=== PATIENT | female | born 1975 | race Caucasian/White ===

== ENCOUNTER 2024-08-19 16:38 | Emergency (ER) | payer OTHER ==
--- OUTSIDE RECORDS SUMMARY | 2024-08-19 16:41 | XMS REPORT | Continuity of Care Document ---
Author Name Unknown Address [address] [place] [address] [address] [place] [address] [facility] Address [address] [place] [address] 1 [address] [place] [address] Care Team Providers Care Test Clerk Name Role Phone Unavailable Unavailable Unavailable Social History Smoking Status Start Date Stop Date Source Current Every Day Smoker [facility] Medications Ordered Medication Name Filled Medication Name Start Date Stop Date Current Medication? Ordering Clinician Indication Dosage Frequency Signature (SIG) Comments Components Source citalopram 20 mg tablet TAKE ONE (1) TABLET(S) BY MOUTH DAILY. citalopram 20 mg tablet TAKE ONE (1) TABLET(S) BY MOUTH DAILY. No citalopram 20 mg tablet TAKE ONE (1) TABLET(S) BY MOUTH DAILY. [facility] melatonin melatonin No melatonin [facility] olanzapine 20 mg tablet TAKE ONE (1) TABLET(S) BY MOUTH IN THE EVENING. olanzapine 20 mg tablet TAKE ONE (1) TABLET(S) BY MOUTH IN THE EVENING. No olanzapine 20 mg tablet TAKE ONE (1) TABLET(S) BY MOUTH IN THE EVENING. [facility] Vital Signs Vital Name Observation Time Observation Value Comments S ource BP Diastolic 2024-04-10 00:00:00 62 mm[Hg] [facility] BMI (Body Mass Index) 2024-04-10 00:00:00 28.7 kg/m2 [facility] Height 2024-04-10 00:00:00 62 [in_i] [facility] BP Systolic 2024-04-10 00:00:00 94 mm[Hg] [facility] Body Weight 2024-04-10 00:00:00 156.8 [lb_av] [facility] Procedures Procedure Date / Time Performed Performing Clinicia n Source MAMMO, screening, digital, bilateral 2024-04-10 00:00:00 [facility] Encounters Start Date/Time End Date/Time Encounter Type Admission Type Attending [facility] Care Department Encounter ID Source 2024-07-19 16:32:10 2024-07-19 16:32:10 Outpatient SFA SFA [id number] Izaiah Ceron 2024-05-25 14:19:02 2024-05-25 14:19:02 Outpatient SFA SFA [id number] Izaiah Ceron 2024-04-10 00:00:00 2024-04-10 00:00:00 DAPHNIE Freeman: [address], [address], [place] [address] , Ph. Formerly [facility] - GC_GCBZW_La yudelka Duncan* [id number] [facility] 2024-01-18 13:54:49 2024-01-18 13:54:49 Outpatient SFA SFA [id number] Izaiah Ceron 2023-11-24 10:19:48 2023-11-24 10:19:48 Outpatient SFA SFA [id number] Izaiah Ceron 2023-11-18 09:56:00 2023-11-18 09:56:00 Outpatient SFA SFA [id number] Izaiah Ceron 2023-06-08 09:32:13 2023-06-08 09:32:13 Outpatient SFA SFA [id number] Izaiah Ceron 2023-04-08 09:11:53 2023-04-08 09:11:53 Outpatient SFA SFA [id number] Izaiah Ceron 2022-01-14 14:35:22 2022-01-14 14:35:22 Outpatient SFA SFA [id number] Izaiah Ceron Results Test Description Test Time Test Comments Results Result Co mments Source LIPID [id number] 03:54:41* Test Item Value Reference Range Interpretation Comme nts CHOLESTEROL (test code = 2210) 215 MG/DL <200 H TRIGLYCERIDES (test code = 2232) 137 MG/DL <150 HDL CHOLESTEROL (test code = 2220) 52 MG/DL >39 CALC LDL CHOL (test code = 2237) 137 MG/DL <100 H NOTE: CALCULATED LDL IS BASED ON BRONSON-PEOPLES METHOD WHICHINCLUDES ADJUSTABLE TRIGLYCERIDE:VLDL CHOLESTEROL RATIO.THIS FACTOR VARIES BY MEASURED TRIGLYCERIDE AND NON-HDLCHOLESTEROL CONCENTRATIONS WITH INCREASED CALCULATED LDL SEENIN HIGHER TRIGLYCERIDE OR LOWER NON-HDL SPECIMENS. FOR MOREINFORMATION, SEE CLIENT ANNOUNCEMENT AT [email or web address] ([email or web address] /CalcLDL-C RISK RATIO LDL/HDL (test code = 2238) 2.63 RATIO <3.22 HEMOGLOBIN [id number] 03:44:33* Test Item Value Reference Range Interpretation Comme nts HEMOGLOBIN A1c (test code = 13493) 5.4 % 4.2-5.6 CBC W/AUTO DIFF WITH [id number] 02:19:19* Test Item Value Reference Range Interpretation Comme nts WBC (test code = 1001) 7.9 K/UL 3.5-11.0 RBC (test code = 1002) 4.40 M/UL 3.80-5.40 HEMOGLOBIN (test code = 1003) 13.9 G/DL 11.5-15.5 HEMATOCRIT (test code = 1004) 42.2 % 34.0-45.0 MCV (test code = 1005) 95.9 fL 80.0-99.0 MCH (test code = 1006) 31.6 PG 25.0-33.0 MCHC (test code = 1007) 32.9 G/DL 31.0-36.0 RDW (test code = 1038) 12.3 % 11.5-15.0 NEUTROPHILS (test code = 1008) 57.4 % LYMPHOCYTES (test code = 1010) 33.8 % MONOCYTES (test code = 1011) 8.1 % EOSINOPHILS (test code = 1012) 0.0 % BASOPHILS (test code = 1013) 0.4 % IMMATURE GRANULOCYTES (test code = 1036) 0.3 % NUCLEATED RBCS (test code = 1065) 0.0 /100 WBC'S See_Comment [Automated message] The system which generated this result transmitted reference range: 0.0. The reference range was not used to interpret this result as normal/abnormal. PLATELET COUNT (test code = 1015) 317 K/UL 130-400 ABSOLUTE NEUTROPHILS (test code = 1066) 4.55 K/UL 1.50-7.50 ABSOLUTE LYMPHOCYTES (test code = 1067) 2.68 K/UL 1.00-4.00 ABSOLUTE MONOCYTES (test code = 1068) 0.64 K/UL 0.20-1.00 ABSOLUTE EOSINOPHILS (test code = 1040) 0.00 K/UL 0.00-0.50 ABSOLUTE BASOPHILS (test code = 1069) 0.03 K/UL 0.00-0.20 ABS IMMATURE GRANULOCYTES (test code = 1020) 0.02 K/UL 0.00-0.10 ABS NUCLEATED RBCS (test code = 34839) 0.00 K/UL 0.00-0.11 UNLESS OTHER RUSSELL INDICATED, ALL TESTING PERFORMED AT [facility] [address] [place] [id number] TUFTER HAND: LYNN SILVERMAN M.D. CLIA NUMBER [id number] [facility]. [id number]
--- NOTE | 2024-08-19 17:21 | EDPHYS ---
Physician Documentation [facility] Name: Deann Doherty Age: 49 yrs Sex: Female : 1975 Arrival Date: 08/19/2024 Time: 16:38 Bed IW5 Private MD: ED Physician Gopi Anthony HPI: 08/19 17:22 This 49 yrs old Female presents to ER via Ambulatory with complaints of Ear Pain. sb4 17:22 The patient presents with pain, that is acute. The complaints affect the left ear. sb4 Onset: The symptoms/episode began/occurred 3 day(s) ago. Modifying factors: The symptoms are alleviated by nothing, the symptoms are aggravated by loud noise, pulling on ears, touching. Associated signs and symptoms: The patient has no apparent associated signs or symptoms. The patient has not experienced similar symptoms in the past. The patient has not recently seen a physician. 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 - Infectious Disease History:: Denies. - Social history:: Smoking status: Patient reports the use of cigarette tobacco products, smokes one pack cigarettes per day. ROS: 17:24 Constitutional: Negative for fever, chills, and weight loss, sb4 17:24 ENT: Positive for ear pain, 17:24 All other systems are negative, Exam: 17:24 Constitutional: This is a well developed, well nourished patient who is awake, alert, sb4 and in no acute distress. Head/Face: Normocephalic, atraumatic. Eyes: Extra-ocular motions intact. Periorbital areas with no swelling, redness, or edema. Respiratory: No increased work of breathing, no retractions or nasal flaring. Skin: Warm, dry with normal turgor. Normal color with no rashes, no lesions, and no evidence of cellulitis. 17:24 ENT: Ear canal(s): erythema, that is moderate, of the left canal, swelling, that is minimal, of the left canal, TM's: erythema, that is moderate, on the left, Examination of the other ear shows no obvious abnormality, Vital Signs: 17:16 BP 107 / 75; Pulse 68; Resp 18; Temp 98.2; Pulse Ox 97% ; Weight 68.95 kg; Height 5 ft. me1 2 in. ; Pain 8/10; 17:16 Body Mass Index 27.80 (68.95 kg, 157.48 cm) me1 17:16 Pain Scale: Adult me1 MDM: 17:05 Medical Screening Exam initiated sb4 17:24 Differential diagnosis: otitis media, otitis externa, ruptured TM, foreign body, acute sb4 otalgia, cerumen impaction. Data reviewed: vital signs, nurses notes, and as a result, I will discharge patient. Counseling: I had a detailed discussion with the patient and/or guardian regarding the historical points, exam findings, and any diagnostic results supporting the discharge/admit diagnosis, the need for outpatient follow up, for definitive care, to return to the emergency department if symptoms worsen or persist or if there are any questions or concerns that arise at home. Administered Medications: No medications were administered Disposition Summary: 08/19/24 17:20 Discharge Ordered Notes: Location: Home sb4 Problem: new sb4 Symptoms: are unchanged sb4 Condition: Stable sb4 Diagnosis - Otitis media, unspecified, left ear sb4 Followup: sb4 - With: Private Physician - When: 1 week - Reason: Recheck today's complaints, Re-evaluation by your physician Discharge Instructions: - Discharge Summary Sheet sb4 - Otitis Media, Adult sb4 Forms: - Antibiotic Education sb4 - Patient Portal Instructions sb4 - Leadership Thank You Letter sb4 Prescriptions: - Amoxicillin 875 mg Oral Tablet - take 1 tablet ORAL route every 12 hours for 10 days; 20 tablet; Refills: 0, sb4 Product Selection Permitted Addendum: 08/21/2024 19:19 Co-signature as Attending Physician, Gopi Anthony MD I agree with the assessment and c muñoz plan of care. Signatures: Gopi Anthony MD MD cha Brown, Sophia, PADiya PADiya sb4 Mahsa Hodges, RN RN me1
--- NOTE | 2024-08-19 17:21 | ER ---
Nurse's Notes [facility] Name: Deann Doherty Age: 49 yrs Sex: Female : 1975 Arrival Date: 08/19/2024 Time: 16:38 Bed IW5 Private MD: Diagnosis: Otitis media, unspecified, left ear Presentation: 08/19 17:16 Chief complaint: Patient states: left ear pain "8/10", "sharp and throbbing" x 3 days. me1 Unable to wear left hearing aide due to pain when it is in. Coronavirus screen: Vaccine status: Patient reports receiving the 2nd dose of the covid vaccine. Ebola Screen: No symptoms or risks identified at this time. Initial Sepsis Screen: Does the patient meet any 2 criteria? No. Patient's initial sepsis screen is negative. Does the patient have a suspected source of infection? No. Patient's initial sepsis screen is negative. Risk Assessment: Do you want to hurt yourself or someone else? Patient reports no desire to harm self or others. Onset of symptoms was August 16, 2024. 17:16 Method Of Arrival: Ambulatory [facility] 17:16 Acuity: CANDI 4 sc1 Triage Assessment: 17:18 General: Appears uncomfortable, well groomed, well developed, well nourished, Behavior me1 is calm, cooperative, appropriate for age. Pain: Complains of pain in left ear Pain does not radiate. Pain currently is 8 out of 10 on a pain scale. Quality of pain is described as sharp, throbbing, Pain began 2-3 days ago. Is continuous. EENT: Reports pain in left ear. Neuro: Level of Consciousness is awake, alert, obeys commands, Oriented to person, place, time, situation, Appropriate for age. Cardiovascular: Patient's skin is warm and dry. Respiratory: Airway is patent Respiratory effort is even, unlabored, Respiratory pattern is regular, symmetrical. GI: No signs and/or symptoms were reported involving the gastrointestinal system. : No signs and/or symptoms were reported regarding the genitourinary system. Derm: Skin is intact, is healthy with good turgor, Skin is pink, warm \\T\\ dry. Musculoskeletal: No signs and/or symptoms reported regarding the musculoskeletal system. 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 - Infectious Disease History:: Denies. - Social history:: Smoking status: Patient reports the use of cigarette tobacco products, smokes one pack cigarettes per day. Screenin:21 [facility] ED Fall Risk Assessment (Adult) History of falling in the last 3 months, me1 including since admission No falls in past 3 months (0 pts) Confusion or Disorientation No (0 pts) Intoxicated or Sedated No (0 pts) Impaired Gait No (0 pts) Mobility Assist Device Used No (0 pt) Altered Elimination No (0 pt) Score/Fall Risk Level 0 - 2 = Low Risk Maintained a safe environment, Provided non-skid footwear, Hourly rounding (assess needs \\T\\ fall precautionary measures) done. Abuse screen: Denies threats or abuse. Nutritional screening: No deficits noted. Tuberculosis screening: No symptoms or risk factors identified. Assessment: 17:21 General: See triage assessment. me1 Vital Signs: 17:16 BP 107 / 75; Pulse 68; Resp 18; Temp 98.2; Pulse Ox 97% ; Weight 68.95 kg; Height 5 ft. me1 2 in. ; Pain 8/10; 17:16 Body Mass Index 27.80 (68.95 kg, 157.48 cm) me1 17:16 Pain Scale: Adult sc1 ED Course: 16:40 Patient arrived in ED. im 17:00 Leila Lombardo PA-C is PHCP. sb4 17:00 Gopi Anthony MD is Attending Physician. sb4 17:18 Triage completed. me1 17:18 Arm band placed on Patient placed in waiting room. me1 17:21 Patient has correct armband on for positive identification. Bed in low position. Call me1 light in reach. Side rails up X2. Provided Education on: POC. Verbalized understanding.. 17:21 No provider procedures requiring assistance completed. Patient did not have IV access me1 during this emergency room visit. Administered Medications: No medications were administered Medication: 17:21 VIS not applicable for this client. me1 Outcome: 17:20 Discharge ordered by . sb4 17:23 Discharged to home ambulatory, me1 17:23 Condition: stable 17:23 Discharge instructions given to patient, Instructed on discharge instructions, follow up and referral plans. medication usage, Demonstrated understanding of instructions, follow-up care, medications, Prescriptions given X 1, 17:23 Patient left the ED. me1 Signatures: Leila Lombardo PA-C PA-C sb4 Thea Nicole Michelle, RN RN me1
[2024-08-19 17:34] VITALS: BP 107/75; TEMP 98.2; O2SAT 97
== END 2024-08-19 17:23 | disposition home or self-care (01) ==
LOC: ER 16:38
DX: H66.92 Otitis media, unspecified, left ear (principal); F17.210 Nicotine dependence, cigarettes, uncomplicated
CPT/HCPCS: 99283

== ENCOUNTER 2025-01-12 12:23 | Inpatient (IN) | payer OTHER ==
--- OUTSIDE RECORDS SUMMARY | 2025-01-12 12:26 | XMS REPORT | Continuity of Care Document ---
Author Name Unknown Address [address] [place] [address] [address] [place] [address] Organization [facility] [place] Address [address] [place] [address] 1 [address] [place] [address] Care Team Providers Care Mobile Ui Developer Name Role Phone Unavailable Unavailable Unavailable Social [...] TAKE ONE (1) TABLET(S) BY MOUTH DAILY. [facility] melatonin melatonin No melatonin [facility] olanzapine 20 mg tablet TAKE ONE (1) TABLET(S) BY MOUTH IN THE EVENING. olanzapine 20 mg tablet TAKE ONE (1) TABLET(S) BY MOUTH IN THE EVENING. No olanzapine 20 mg tablet TAKE ONE (1) TABLET(S) BY MOUTH IN THE EVENING. [facility] Vital Signs Vital Name Observation Time Observation Value Comments S ource BP Diastolic 2024-04-10 00:00:00 62 mm[Hg] [facility] BMI (Body Mass Index) 2024-04-10 00:00:00 28.7 kg/m2 [facility] 2024-04-10 00:00:00 62 [in_i] [facility] BP Systolic 2024-04-10 00:00:00 94 mm[Hg] [facility] Body Weight 2024-04-10 00:00:00 156.8 [lb_av] [facility] Procedures Procedure Date / Time Performed Performing Clinicia n Source MAMMO, screening, digital, bilateral 2024-04-10 00:00:00 [facility] Encounters Start Date/Time End Date/Time Encounter Type Admission Type Attending [facility] Care Department Encounter ID Source 2024-09-19 12:43:46 2024-09-19 12:43:46 Outpatient SFA SFA [id number] Izaiah Ceron 2024-07-19 16:32:10 2024-07-19 16:32:10 Outpatient SFA SFA 0423 Izaiah Ceron 2024-05-25 14:19:02 2024-05-25 14:19:02 Outpatient SFA SFA [id number] Izaiah Ceron 2024-04-10 00:00:00 2024-04-10 00:00:00 DAPHNIE Freeman: [address], [place] [address], [place] [address] , Ph. Formerly [facility] - GC_GCBZW_La yudelka Duncan* [id number] [facility] 2024-01-18 13:54:49 2024-01-18 13:54:49 Outpatient SFA SFA [...] Comments Results Result Co mments Source LIPID [id number] 03:54:41* Test Item Value Reference Range Interpretation [...] SPECIMENS. FOR MOREINFORMATION, SEE CLIENT ANNOUNCEMENT AT [email or web address] /[email or web address]-C RISK RATIO LDL/HDL (test code = 2238) 2.63 RATIO <3.22 HEMOGLOBIN [id number] 03:44:33* Test Item Value Reference Range Interpretation Comme nts HEMOGLOBIN A1c (test code = 40726) 5.4 % 4.2-5.6 CBC W/AUTO DIFF WITH [id number] 02:19:19* Test Item Value Reference Range Interpretation [...] 0.00-0.10 ABS NUCLEATED RBCS (test code = 58718) 0.00 K/UL 0.00-0.11 UNLESS OTHER RUSSELL INDICATED, ALL TESTING PERFORMED AT [facility] [address] [place] [address] DIRECTOR OF FIELD SALES: LYNN SILVERMAN M.D. CLIA NUMBER [id number] [facility]. [id number]
[2025-01-12] MEDS ORDERED: NA CHLORIDE 0.9% 1,000 ML ONE ×2 (12:40→21:51)
[2025-01-12 12:50] LABS: Absolute Lymphocytes (CBC) 3.2 K/uL (0.7-4.9); Hematocrit 36.9 % (36.0-45.0); Hemoglobin 12.4 g/dL (12.0-15.0); MCH 31.1 pg (27.0-35.0); MCHC 33.7 g/dL (32.0-36.0); MCV 92.2 fL (80-100); MPV 8.3 fL (7.6-11.3); Nucleated RBC Absolute Count 0.0 (0-0); Nucleated Red Blood Cells % 0.0 % (0-0); RBC Red Blood Cell Count 4.00 M/uL (3.86-4.86); White Blood Count 11.80 thou/uL (4.3-10.9)
[2025-01-12 13:12] LABS: PT Prothrombin Time 13.9 SECONDS (10-13.0); PTT, Activated Partial Thromb 30.8 SECONDS (27.2-37.4); Protime INR 1.24
[2025-01-12 13:32] LABS: ALT/SGPT 17 U/L (13-56); AST/SGOT 20 U/L (15-37); Albumin 3.1 g/dL (3.4-5.0); Albumin/Globulin Ratio 0.7 (1.1-1.8); Alkaline Phosphatase 110 U/L (45-117); Anion Gap 8.9 mEq/L (5.0-15.0); BUN Blood Urea Nitrogen 9 mg/dL (7-18); Globulin 4.3 g/dL (2.3-3.5); Glucose Level 127 mg/dL (74-106); Potassium 3.9 mEq/L (3.5-5.1)
[2025-01-12 13:33] LABS: Bilirubin Indirect, Calculated 0.3 mg/dL (0.2-0.8)
--- NOTE | 2025-01-12 15:02 | ER ---
Nurse's Notes [facility] Name: Deann Doherty Age: 49 yrs Sex: Female : 1975 Arrival Date: 01/12/2025 Time: 12:23 Bed 3 Private MD: Diagnosis: Acute respiratory failure-SECONDARY TO METHADONE USE;Adverse effect of other narcotics Presentation: 01/12 12:23 Acuity: CANDI 1 aa5 12:23 Onset of symptoms was January 12, 2025. aa5 12:23 Initial Sepsis Screen: Does the patient meet any 2 criteria? No. Patient's initial aa5 sepsis screen is negative. Does the patient have a suspected source of infection? No. Patient's initial sepsis screen is negative. 12:23 Coronavirus screen: At this time, the client does not indicate any symptoms associated aa5 with coronavirus-19. Ebola Screen: Unable to complete the Ebola screening because:. 12:23 Method Of Arrival: Other aa5 12:23 Chief complaint: US staff reported pt became unresponsive with snoring respirations. aa5 Rapid response team reports hypoxia, pt currently on 2L NC. Pt unresponsive at this time. 12:42 Risk Assessment: Do you want to hurt yourself or someone else? Patient reports no aa5 desire to harm self or others. Triage Assessment: 13:30 General: Appears in no apparent distress. Behavior is calm, cooperative. cf3 13:30 Pain: Denies pain. EENT: No deficits noted. Neuro: Level of Consciousness is awake, cf3 alert, Oriented to person, place, time, situation, Moves all extremities. Full function Pupils are constricted, pinpoint. 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 - Infectious Disease History:: Denies. - Social history:: Smoking status: Patient reports the use of cigarette tobacco products. - Family history:: not pertinent. Screenin:08 [facility] ED Fall Risk Assessment (Adult) History of falling in the last 3 months, cf3 including since admission No falls in past 3 months (0 pts) Confusion or Disorientation No (0 pts) Intoxicated or Sedated Yes (3 pts) Impaired Gait No (0 pts) Mobility Assist Device Used No (0 pt) Altered Elimination No (0 pt) Score/Fall Risk Level 3 or more points = High Risk Oriented to surroundings, Maintained a safe environment, Educated pt \\T\\ family on fall prevention, incl call for assistance when getting out of bed, Assessed \\T\\ reinforced patient's understanding of fall precautions, Provided non-skid footwear. 15:08 Abuse screen: Denies threats or abuse. Denies injuries from another. Nutritional cf3 screening: No deficits noted. Tuberculosis screening: No symptoms or risk factors identified. Assessment: 12:27 Reassessment: Pt now awake, A \\T\\O x 4, pt states "I just took my methadone this morning" aa5 . 12:35 Reassessment: Pt's signnificant other states "she just started taking methadone aa5 yesterday, this morning was her 2nd dose" . 13:30 General: Appears in no apparent distress. Behavior is calm, cooperative. Pain: Denies cf3 pain. 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 Full function. Neuro: Pupils are pinpoint. 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 Respiratory: Respiratory effort is even, unlabored, Respiratory pattern is regular. Psych: 15:13 [place] Suicide Severity Screening: In the past month, have you wished you were cf3 or wished you could go to sleep and not wake up? Patient responds "No." "In the past month, have you actually had any thoughts of killing yourself?" Patient responds "no." "In your lifetime, have you ever done anything, started to do anything, or prepared to do anything to end your life?" Patient responds "no.". Subjective:. Objective: Patient is cooperative. Interventions: Accidental overdose on prescription medications. Safety Checks: Door is open. Visitors are present. Pt denies substance abuse. Commitment: n/a. Vital Signs: 12:23 BP 124 / 70; Pulse 95; Resp 8 S; Temp 97.5(R); Pulse Ox 98% on 2 lpm NC; aa5 12:40 BP 93 / 62; Pulse 96; Resp 16; Temp 97.8(TE); Pulse Ox 98% on NC; cf3 13:00 BP 102 / 56; Pulse 81; Resp 16; Pulse Ox 96% on 2 lpm NC; cf3 14:00 BP 92 / 57; Pulse 82; Resp 10; Pulse Ox 92% on 2 lpm NC; cf3 15:00 BP 90 / 64; Pulse 73; Resp 10; Pulse Ox 91% on 2 lpm NC; cf3 16:00 BP 99 / 74; Pulse 73; Resp 17; Pulse Ox 93% on 2 lpm NC; cf3 17:00 BP 109 / 83; Pulse 85; Resp 18; Pulse Ox 94% on 2 lpm NC; cf3 ED Course: 12:23 Arm band placed on Patient placed in an exam room, on a stretcher. aa5 12:24 Patient arrived in ED. mr 12:24 Inserted saline lock: 20 gauge in left antecubital area, using aseptic technique. Blood aa5 collected. Flushed with 10 mL NS. 12:24 No provider procedures requiring assistance completed. aa5 12:25 Inserted saline lock: 20 gauge in right hand, using aseptic technique. Flushed with 10 ar8 mL NS. 12:30 Gopi Anthony MD is Attending Physician. mabel 12:42 Triage completed. aa5 13:02 Kareem Hagan, AURA is Primary Nurse. cf3 15:01 Rola Huggins MD is Hospitalizing Provider. mabel 15:08 Patient has correct armband on for positive identification. Placed in gown. Bed in low cf3 position. Call light in reach. Side rails up X 1. Provided Education on:. Client placed on continuous cardiac and pulse oximetry monitoring. NIBP monitoring applied. telemetry monitor on. Door closed. Noise minimized. Administered Medications: 12:25 Drug: Naloxone IVP 2 mg IVP once Route: IVP; Site: right hand; ar1 15:02 Follow up: Response: No adverse reaction cf3 12:37 Drug: NS 0.9% IV 1000 ml IV at 1000 ml once; to be given as a bolus over 60 minutes cf3 Route: IV; Rate: 1000 ml; Site: left antecubital; 14:57 Follow up: IV Status: Completed infusion; IV Intake: 1000ml cf3 15:01 Follow up: Response: No adverse reaction cf3 Medication: 15:11 VIS not applicable for this client. cf3 Intake: 14:57 IV: 1000ml; Total: 1000ml. cf3 Outcome: 15:02 Decision to Hospitalize by Provider. mabel 01/13 18:23 Patient left the ED. kb4 Signatures: Gopi Anthony MD MD cha Rivera, Mary, Reg Reg mr EldridgeGaby, RN RN aa5 Mahsa Hodges RN RN me1 Ning Arzola RN RN kb4 Kareem Hagan RN RN cf3 Jewel Maddox RN RN ar8
--- NOTE | 2025-01-12 15:02 | EDPHYS ---
Physician Documentation [facility] Name: Deann Doherty Age: 49 yrs Sex: Female : 1975 Arrival Date: 01/12/2025 Time: 12:23 Bed 3 Private MD: ED Physician Gopi Anthony HPI: 01/12 13:44 This 49 yrs old Female presents to ER via Other with complaints of mabel Unresponsive. 13:44 FROM MAMMO UNRESPONSIVE , TOOK METHADONE. The patient presents with decreased mabel responsiveness. Onset: The symptoms/episode began/occurred just prior to arrival. Possible causes: drug use, METHADOINE. Associated signs and symptoms: The patient has no apparent associated signs or symptoms. Current symptoms: In the emergency department the patient's symptoms have improved, markedly. Patient's baseline: Neuro: alert and fully oriented. Severity of symptoms: At their worst the symptoms were moderate severe in the emergency department the symptoms are unchanged. The patient has not experienced similar symptoms in the past. 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 - Infectious Disease History:: Denies. - Social history:: Smoking status: Patient reports the use of cigarette tobacco products. - Family history:: not pertinent. ROS: 13:44 Constitutional: Negative for fever, chills, and weight loss, Eyes: Negative for injury, mabel pain, redness, and discharge, ENT: Negative for injury, pain, and discharge, Neck: Negative for injury, pain, and swelling, Cardiovascular: Negative for chest pain, palpitations, and edema, Respiratory: Negative for shortness of breath, cough, wheezing, and pleuritic chest pain, Abdomen/GI: Negative for abdominal pain, nausea, vomiting, diarrhea, and constipation, Back: Negative for injury and pain, : Negative for injury, bleeding, discharge, and swelling, MS/Extremity: Negative for injury and deformity, Skin: Negative for injury, rash, and discoloration, Psych: Negative for depression, anxiety, suicide ideation, homicidal ideation, and hallucinations, Allergy/Immunology: Negative for hives, rash, and allergies, Endocrine: Negative for neck swelling, polydipsia, polyuria, polyphagia, and marked weight changes, Hematologic/Lymphatic: Negative for swollen nodes, abnormal bleeding, and unusual bruising, 13:44 Neuro: Positive for UNRESPONSIVE, Exam: 13:44 Constitutional: This is a well developed, well nourished patient who is awake, alert, mabel and in no acute distress. Head/Face: Normocephalic, atraumatic. Eyes: Pupils equal round and reactive to light, extra-ocular motions intact. Lids and lashes normal. Conjunctiva and sclera are non-icteric and not injected. Cornea within normal limits. Periorbital areas with no swelling, redness, or edema. ENT: Nares patent. No nasal discharge, no septal abnormalities noted. Tympanic membranes are normal and external auditory canals are clear. Oropharynx with no redness, swelling, or masses, exudates, or evidence of obstruction, uvula midline. Mucous membranes moist. Neck: Trachea midline, no thyromegaly or masses palpated, and no cervical lymphadenopathy. Supple, full range of motion without nuchal rigidity, or vertebral point tenderness. No Meningismus. Chest/axilla: Normal chest wall appearance and motion. Nontender with no deformity. No lesions are appreciated. Cardiovascular: Regular rate and rhythm with a normal S1 and S2. No gallops, murmurs, or rubs. Normal PMI, no JVD. No pulse deficits. Respiratory: Lungs have equal breath sounds bilaterally, clear to auscultation and percussion. No rales, rhonchi or wheezes noted. No increased work of breathing, no retractions or nasal flaring. Abdomen/GI: Soft, non-tender, with normal bowel sounds. No distension or tympany. No guarding or rebound. No evidence of tenderness throughout. Back: No spinal tenderness. No costovertebral tenderness. Full range of motion. Skin: Warm, dry with normal turgor. Normal color with no rashes, no lesions, and no evidence of cellulitis. MS/ Extremity: Pulses equal, no cyanosis. Neurovascular intact. Full, normal range of motion., bilateral aka Neuro: Awake and alert, GCS 15, oriented to person, place, time, and situation. Cranial nerves II-XII grossly intact. Motor strength 5/5 in all extremities. Sensory grossly intact. Cerebellar exam normal. Normal gait. 13:44 ECG was reviewed by the Attending Physician. Vital Signs: 12:23 BP 124 / 70; Pulse 95; Resp 8 S; Temp 97.5(R); Pulse Ox 98% on 2 lpm NC; aa5 12:40 BP 93 / 62; Pulse 96; Resp 16; Temp 97.8(TE); Pulse Ox 98% on NC; cf3 13:00 BP 102 / 56; Pulse 81; Resp 16; Pulse Ox 96% on 2 lpm NC; cf3 14:00 BP 92 / 57; Pulse 82; Resp 10; Pulse Ox 92% on 2 lpm NC; cf3 15:00 BP 90 / 64; Pulse 73; Resp 10; Pulse Ox 91% on 2 lpm NC; cf3 16:00 BP 99 / 74; Pulse 73; Resp 17; Pulse Ox 93% on 2 lpm NC; cf3 17:00 BP 109 / 83; Pulse 85; Resp 18; Pulse Ox 94% on 2 lpm NC; cf3 MDM: 12:34 Medical Screening Exam initiated mabel 15:02 Differential Diagnosis altered mental status, sepsis, flu. Differential Diagnosis: CVA, mabel electrolyte abnormality, alcohol intoxication, hypoglycemia, intracranial bleed, meningitis, overdose, pneumonia, seizure, sepsis, TIA, UTI, volume depletion. Data reviewed: vital signs, nurses notes, lab test result(s), EKG. Consideration of Admission/Observation Patient was admitted/placed on observation. Escalation of care including admission/observation considered. I considered the following discharge prescriptions or medication management in the emergency department Medications were administered in the Emergency Department. See MAR. Independent interpretation of the following test(s) in the Emergency Department EKG: See my EKG interpretation above. Test considered but Not performed: CT: NO CT HEAD. Historians other than the Patient: Spouse/Significant Other: SPOUSE WELL INFORMED. Care significantly affected by the following chronic conditions: ANXIETY , DEPRESSION, SCHIZO. 01/12 12:36 Order name: Acetaminophen 01/12 12:36 Order name: Basic Metabolic Panel 01/12 12:36 Order name: CBC with Diff 01/12 12:36 Order name: ETOH Level 01/12 12:36 Order name: Hepatic Function 01/12 12:36 Order name: PT-INR [facility] 01/12 12:36 Order name: Ptt, Activated [facility] 01/12 12:36 Order name: Salicylate [facility] 01/12 12:37 Order name: Acetaminophen; Complete Time: 13:48 [facility] 01/12 12:37 Order name: Basic Metabolic Panel; Complete Time: 13:48 [facility] 01/12 12:37 Order name: CBC with Diff; Complete Time: 13:48 [facility] 01/12 12:37 Order name: ETOH Level; Complete Time: 14:59 [facility] 01/12 12:37 Order name: Hepatic Function; Complete Time: 13:48 [facility] 01/12 12:37 Order name: PT-INR; Complete Time: 13:48 [facility] 01/12 12:37 Order name: Ptt, Activated; Complete Time: 13:48 [facility] 01/12 12:37 Order name: Salicylate; Complete Time: 14:59 [facility] 01/12 12:37 Order name: Urine Drug Screen [facility] 01/12 15:46 Order name: Basic Metabolic Panel [facility] 01/12 15:46 Order name: Basic Metabolic Panel; Complete Time: 07:39 [facility] 01/12 15:46 Order name: Basic Metabolic Panel [facility] 01/12 15:46 Order name: Basic Metabolic Panel [facility] 01/12 15:46 Order name: CBC with Automated Diff [facility] 01/12 15:46 Order name: CBC with Automated Diff; Complete Time: 07:39 [facility] 01/12 15:46 Order name: CBC with Automated Diff [facility] 01/12 15:46 Order name: CBC with Automated Diff [facility] 01/12 12:36 Order name: EKG - Nurse/Tech; Complete Time: 12:36 [facility] 01/12 12:36 Order name: IV Saline Lock; Complete Time: 12:36 [facility] 01/12 12:36 Order name: Labs collected and sent; Complete Time: 12:37 [facility] 01/12 12:36 Order name: Suicide Screening (Swain); Complete Time: 17:20 [facility] 01/12 12:37 Order name: EKG - Nurse/Tech; Complete Time: 15:08 [facility] 01/12 12:37 Order name: IV Saline Lock; Complete Time: 15:08 [facility] 01/12 12:37 Order name: Labs collected and sent; Complete Time: 15:08 [facility] 01/12 12:37 Order name: Suicide Screening ([place]); Complete Time: 15:12 [facility] 01/12 12:37 Order name: Blood Glucose Level; Complete Time: 15:08 [facility] 01/12 13:53 Order name: Misc. Order: CALL POISON CONTROL FOLLOW ALL RECOMENDATIONS; Complete Time: [facility] 14:57 EC:44 Rate is 108 beats/min. Rhythm is regular. QRS [place] is Normal. SC interval is normal. mabel QRS interval is normal. QT interval is normal. No Q waves. T waves are Normal. No ST changes noted. Clinical impression: Sinus tachycardia. Interpreted by me. Reviewed by me. Administered Medications: 12:25 Drug: Naloxone IVP 2 mg IVP once Route: IVP; Site: right hand; me1 15:02 Follow up: Response: No adverse reaction cf3 12:37 Drug: NS 0.9% IV 1000 ml IV at 1000 ml once; to be given as a bolus over 60 minutes cf3 Route: IV; Rate: 1000 ml; Site: left antecubital; 14:57 Follow up: IV Status: Completed infusion; IV Intake: 1000ml cf3 15:01 Follow up: Response: No adverse reaction cf3 Disposition: 15:05 Critical Care:. mabel Disposition Summary: 01/12/25 15:02 Hospitalization Ordered Notes: Hospitalization Status: Inpatient Admission mabel Provider: Rola Huggins cha Condition: Fair mabel Problem: new mabel Symptoms: have improved mabel Bed/Room Type: Standard mabel Location: [facility] ER HOLD(01/12/25 21:37) Room Assignment: ERHOLD-(01/12/25 21:37) Diagnosis - Acute respiratory failure - SECONDARY TO METHADONE USE mabel - Adverse effect of other narcotics mabel Discharge Instructions: - Discharge Summary Sheet mabel - Substance Use Disorder mabel - Acute Respiratory Failure, Adult mabel - Substance Use Disorder and Mental Illness mabel - Supporting Someone With Substance Use Disorder mabel Forms: - Medication Reconciliation Form mabel - SBAR form mabel - Leadership Thank You Letter [facility] Critical care time excluding procedures: 15:05 Critical care time: Bedside Care: 25 minutes, Consultation: 10 minutes, Family mabel Intervention: 5 minutes. Total time: 40 minutes Signatures: Dispatcher [employer] Gopi Andrade MD MD cha Calderon, Audri, RN RN aa5 Eunice Garcia RN RN Mahsa Hodges RN RN dc1 Kareem Hagan, RN RN cf3 Corrections: (The following items were deleted from the chart) 12:37 12:37 ACETAMINOPHEN+C.LAB.BRZ ordered. EDMS EDMS 12:37 12:37 BASIC METABOLIC PANEL+C.LAB.BRZ ordered. EDMS EDMS 12:37 12:37 CBC+H.LAB.BRZ ordered. EDMS EDMS 12:37 12:37 ETHANOL+C.LAB.BRZ ordered. EDMS EDMS 12:37 12:37 HEPATIC FUNCTION+C.LAB.BRZ ordered. EDMS EDMS 12:37 12:37 PROTIME (+INR)+COAG.LAB.BRZ ordered. EDMS EDMS 12:37 12:37 PTT, ACTIVATED+COAG.LAB.BRZ ordered. EDMS EDMS 12:37 12:37 SALICYLATE+C.LAB.BRZ ordered. EDMS EDMS 21:37 15:02 Intensive Care Unit mabel cg 21:37 15:02 mabel cg
--- NOTE | 2025-01-12 17:08 | P.HP ---
Certification for Inpatient Patient admitted to: Observation With expected LOS: <2 Midnights Patient will require the following post-hospital care: None Practitioner: I am a practitioner with admitting privileges, knowledge of patient current condition, hospital course, and medical plan of care. Services: Services provided to patient in accordance with Admission requirements found in Title 42 Section 412.3 of the Code of Federal Regulations Patient History Date of Service: 01/12/25 Reason for admission: Accidental overdose History of Present Illness: 49-year-old female with history of schizophrenia, depression, anxiety, substance abuse issues presented to the hospital for an outpatient ultrasound. During the ultrasound she became unresponsive and apneic, rapid response was called and she was brought to the ER for evaluation. She was requiring BVM ventilation as she was having periods of apnea and agonal respirations and was cyanotic. While preparing for airway management she was given a dose of Narcan, shortly after she awoke. Patient reports that she was recently prescribed methadone 80 mg, she took 40 mg yesterday on 01/11 and 40 mg again today on 01/12 in the morning. She denies any use of any other substances. Given the prolonged duration of methadone patient would need to be monitored in the hospital overnight. She denies any suicidal ideation or intentional overdose. Allergies No Known Drug Allergies Allergy (Unverified 08/11/14 23:03) Unknown No Known Allergies Allergy (Uncoded 09/02/16 13:07) Unknown - Past Medical/Surgical History -: Depression/anxiety/schizophrenia - Social History Alcohol use: No CD- Drugs: No Caffeine use: Yes Place of Residence: Home Review of Systems 10-point ROS is otherwise unremarkable Respiratory: Shortness of Breath Physical Examination - Physical Exam General: Alert, In no apparent distress, Oriented x3 HEENT: Atraumatic, PERRLA Neck: Supple, 2+ carotid pulse no bruit, No LAD Respiratory: Clear to auscultation bilaterally, Normal air movement Cardiovascular: Regular rate/rhythm, Normal S1 S2 Gastrointestinal: Normal bowel sounds, No tenderness Musculoskeletal: No tenderness Integumentary: No rashes Neurological: Normal gait, Normal speech, Normal strength at 5/5 x4 extr, Normal affect - Studies Laboratory Data (last 24 hrs) 01/12/25 01/12/25 01/12/25 12:35 12:35 12:35 WBC 11.80 H Hgb 12.4 Hct 36.9 Plt Count 244 PT 13.9 H INR 1.24 APTT 30.8 Sodium 135 L Potassium 3.9 BUN 9 Creatinine 0.80 Glucose 127 H Total Bilirubin 0.5 AST 20 ALT 17 Alkaline Phosphatase 110 Assessment and Plan - Plan Assessment: Accidental opiate overdose Acute hypoxic respiratory failure/apnea Plan: Accidental opiate overdose Acute hypoxic respiratory failure/apnea Hold methadone Narcan as needed Monitor respiratory status closely given prolonged duration of action of methadone Possible discharge tomorrow if she is not having further episodes of apnea/hypoventilation DVT PPX: Lovenox Code status: Full code Discharge Plan: Home Plan to discharge in: 24 Hours - Advance Directives Does patient have a Living Will: No Does patient have a Durable POA for Healthcare: No - Code Status/Comfort Care Code Status Assessed: Yes (Full code) Critical Care: No Time Spent Managing Pts Care (In Minutes): 70
[2025-01-12] MEDS ORDERED: NALOXONE 0.4 MG/ML VIAL ONE ×2 (18:12→23:09)
[2025-01-12] MEDS: NALOXONE 0.4 MG/ML VIAL IV PRN (18:30)
[2025-01-12] MEDS ORDERED: ACETAMINOPHEN 325 MG TABLET ONE (20:40)
[2025-01-12] MEDS: ACETAMINOPHEN 325 MG TABLET PO PRN (20:42)
[2025-01-13] MEDS: NA CHLORIDE 0.9% 1,000 ML IV ONE (00:59)
[2025-01-13] MEDS ORDERED: NALOXONE 0.4 MG/ML VIAL IV PRN ×2 (01:37→02:42)
[2025-01-13] MEDS ORDERED: NALOXONE HCL 2 MG/2 ML VIAL ONE ×2 (02:30→02:43)
[2025-01-13] MEDS ORDERED: NALOXONE 0.4 MG/ML VIAL ONE (02:30)
[2025-01-13] MEDS ORDERED: NA CHLORIDE 0.9% 100 ML ONE (02:44)
[2025-01-13] MEDS: NALOXONE IV PRN (03:14)
[2025-01-13] MEDS: NA CHLORIDE 0.9% IV PRN (03:14)
[2025-01-13 05:38] VITALS: BMI 28.5
[2025-01-13] MEDS: KETOROLAC 30 MG/ML INJ IV PRN (05:44)
[2025-01-13] MEDS ORDERED: KETOROLAC 30 MG/ML INJ ONE ×2 (05:48→18:03)
[2025-01-13 07:02] LABS: Absolute Lymphocytes (CBC) 1.9 K/uL (0.7-4.9); Hematocrit 33.2 % (36.0-45.0); Hemoglobin 11.3 g/dL (12.0-15.0); MCH 31.5 pg (27.0-35.0); MCHC 34.0 g/dL (32.0-36.0); MCV 92.6 fL (80-100); MPV 8.5 fL (7.6-11.3); Nucleated RBC Absolute Count 0.0 (0-0); Nucleated Red Blood Cells % 0.0 % (0-0); RBC Red Blood Cell Count 3.59 M/uL (3.86-4.86); White Blood Count 8.40 thou/uL (4.3-10.9)
[2025-01-13 07:09] LABS: Anion Gap 10.8 mEq/L (5.0-15.0); BUN Blood Urea Nitrogen 4.0 mg/dL (7-18); Glucose Level 83.0 mg/dL (74-106); Potassium 3.8 mEq/L (3.5-5.1)
[2025-01-13 07:58] VITALS: O2SAT 97
[2025-01-13] MEDS ORDERED: ENOXAPARIN 40 MG/0.4 ML SQ ONE (08:41)
[2025-01-13] MEDS: POTASSIUM CL SA 10 MEQ TAB PO ONE (09:00)
[2025-01-13] MEDS: ENOXAPARIN 40 MG/0.4 ML SQ SCH (09:00)
[2025-01-13] MEDS ORDERED: POTASSIUM CL SA 10 MEQ TAB PO ONE (09:55)
--- NOTE | 2025-01-13 17:04 | P.DS ---
Admission Date: 01/12/25 Discharge Date: 01/13/25 Disposition: ROUTINE DISCHARGE Discharge Condition: GOOD Reason for Admission: Accidental overdose Brief History of Present Illness: 49-year-old female with history of schizophrenia, depression, anxiety, substance abuse issues presented to the hospital for an outpatient ultrasound. During the ultrasound she became unresponsive and apneic, rapid response was called and she was brought to the ER for evaluation. She was requiring BVM ventilation as she was having periods of apnea and agonal respirations and was cyanotic. While preparing for airway management she was given a dose of Narcan, shortly after she awoke. Patient reports that she was recently prescribed methadone 80 mg, she took 40 mg yesterday on 01/11 and 40 mg again today on 01/12 in the morning. She denies any use of any other substances. Given the prolonged duration of methadone patient would need to be monitored in the hospital overnight. She denies any suicidal ideation or intentional overdose. Hospital Course: Assessment: Accidental opiate overdose Acute hypoxic respiratory failure/apnea Patient was admitted to the hospital for unintentional opioid overdose. She was started on methadone recently and had taken 40 mg daily for 2 days which is half of her prescribed dose. She came to the hospital for a scheduled ultrasound and had respiratory arrest/apnea. She was given Narcan and responded, given the methadone as long duration of action she was monitored in the hospital. Overnight she did require additional treatment with IV Narcan, she is started on a continuous infusion from around 3 AM to 8 AM. Narcan was discontinued around 8 AM. Case was discussed with poison control who recommends monitoring patient in the hospital for at least 6 hours after discontinuation of the Narcan infusion. It has not been around 9 hours, patient is awake, alert, not required any further doses of Narcan, eating and feeling much better. 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 Vital Signs/Physical Exam: Temp Pulse Resp BP Pulse Ox 97.4 F 82 14 99/69 97 01/13/25 10:01/13/25 10:00 01/13/25 09:00 01/13/25 10:01/13/25 10:00 General: Alert, In no apparent distress, Oriented x3 HEENT: Atraumatic, PERRLA, EOMI Neck: Supple, JVD not distended Respiratory: Clear to auscultation bilaterally, Normal air movement Cardiovascular: Regular rate/rhythm, Normal S1 S2 Gastrointestinal: Normal bowel sounds, No tenderness Musculoskeletal: No tenderness Integumentary: No rashes Neurological: Normal speech, Normal tone, Normal affect Lymphatics: No axilla or inguinal lymphadenopathy Laboratory Data at Discharge: WBC 8.40 thou/uL (4.3-10.9) 01/13/25 06:19 Hgb 11.3 g/dL (12.0-15.0) L D 01/13/25 06:19 Hct 33.2 % (36.0-45.0) L 01/13/25 06:19 Plt Count 217 thou/uL (152-406) 01/13/25 06:19 PT 13.9 SECONDS (10-13.0) H 01/12/25 12:35 INR 1.24 01/12/25 12:35 APTT 30.8 SECONDS (27.2-37.4) 01/12/25 12:35 Sodium 138 mEq/L (136-145) 01/13/25 06:19 Potassium 3.8 mEq/L (3.5-5.1) 01/13/25 06:19 BUN 4 mg/dL (7-18) L 01/13/25 06:19 Creatinine 0.53 mg/dL (0.55-1.02) L 01/13/25 06:19 Glucose 83 mg/dL (74-106) 01/13/25 06:19 Total Bilirubin 0.5 mg/dL (0.2-1.0) 01/12/25 12:35 AST 20 U/L (15-37) 01/12/25 12:35 ALT 17 U/L (13-56) 01/12/25 12:35 Alkaline Phosphatase 110 U/L (45-117) 01/12/25 12:35 Physician Discharge Instructions: Patient was admitted to the hospital for unintentional opioid overdose. She was started on methadone recently and had taken 40 mg daily for 2 days which is half of her prescribed dose. She came to the hospital for a scheduled ultrasound and had respiratory arrest/apnea. She was given Narcan and responded, given the methadone as long duration of action she was monitored in the hospital. Overnight she did require additional treatment with IV Narcan, she is started on a continuous infusion from around 3 AM to 8 AM. Narcan was discontinued around 8 AM. Case was discussed with poison control who recommends monitoring patient in the hospital for at least 6 hours after discontinuation of the Narcan infusion. It has not been around 9 hours, patient is awake, alert, not required any further doses of Narcan, eating and feeling much better. 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 Diet: Regular Activity: Ad chris Followup: Faheem Narvaez MD [Primary Care Provider] - 1-2 Weeks Time spent managing pt's care (in minutes): 45
[2025-01-13 17:56] VITALS: BP 112/72; TEMP 98.4
== END 2025-01-13 18:00 | disposition home or self-care (01) | DRG 917 ==
LOC: ER 12:23 → ERHOLD 15:42
PROVIDERS: ADMIT Internal Medicine; ATTEND Internal Medicine
DX: T40.3X1A Poisoning by methadone, accidental (unintentional), initial encounter (principal); J96.01 Acute respiratory failure with hypoxia; F32.A Depression, unspecified; F41.9 Anxiety disorder, unspecified; F20.9 Schizophrenia, unspecified; F17.210 Nicotine dependence, cigarettes, uncomplicated
CPT/HCPCS: 36415; 80048; 80076; 80143; 80179; 82077; 85025; 85610; 85730; 96361; 96374; 99291; 99292; J1650; J1885; J2312; J7030